=== PATIENT | male | born 1945 | race Caucasian/White ===

== ENCOUNTER 2023-10-05 10:03 | Emergency (ER) | payer MEDICARE, OTHER, SELFPAY ==
[2023-10-05 10:22] VITALS: BP 122/62
--- NOTE | 2023-10-05 13:35 | ED.GENMED ---
History of Present Illness
General
Chief Complaint: DVT/Possible Blood Clot
Time Seen by Provider: 10/05/23 12:35
Travel History
Have you had any contact with someone who has COVID-19?: No
Do you have any symptoms of coronavirus? Fever > 100 degrees, chills, cough, shortness of breath, sore throat, loss of taste or smell, muscle aches, or headache?: No
History of Present Illness
History of Present Illness:
HPI: The patient was seen at [facility] about a week ago with right lower extremity distal pain and swelling. They report having a negative ultrasound for DVT but was diagnosed with 'thrombophlebitis'. Was recommended that he takes
Tylenol. The pain has been worsening so he came in here as he also has increasing gait dysfunction. He came in by private vehicle. states that they did do an x-ray at [place] as well. There has been no injury.
EXAM:
GENERAL: The patient appears somewhat generally weak and debilitated
HEENT: Moist oral mucosa
NEUROLOGIC: Equally weak in all extremities, no coordination deficits
PSYCHIATRIC: Appropriate mental status, normal insight and judgement
EXTREMITIES: 2+ bilateral lower extremity edema distally however there seems to be more tenderness to the right distal lower extremity, no evidence for cellulitis
SKIN: No rash, no lesions
TIME OF INITIAL ENCOUNTER: 1:30 PM
NUMBER AND COMPLEXITY OF PROBLEMS ADDRESSED AT THE ENCOUNTER
� Chronic conditions affecting care: DVT, CAD, high blood pressure, hyperlipidemia
� Acute Exacerbation and/or Progression of Chronic Illness:
� Differential Diagnosis includes: Thrombophlebitis, DVT, superficial venous thrombosis
AMOUNT AND/OR COMPLEXITY OF DATA TO BE REVIEWED AND ANALYZED
� I performed an independent evaluation of and my interpretation is:
EKG:
CT:
X-rays:
Laboratory Studies:
Other: Ultrasound imaging negative for DVT
� Review of other/old records: The patient was admitted here with aspiration pneumonia 2022
� Clinical information was obtained by an independent historian: Spoke to the at bedside
� Prescriptions/Medications Considered but not given:
� Further testing considered but not performed:
RISK OF COMPLICATIONS AND/OR MORBIDITY OR MORTALITY OF PATIENT MANAGEMENT
� Social determinants of health affecting care: Lives at home
� Discussion with other providers:
� Escalation of care including admission/observation vs risk of discharge considered: Family is requesting something stronger for pain. Will try Ultram. I notified family that this does have potential side effects. Ultrasound
imaging has been ordered. Patient's states he has had extensive imaging including x-rays at [facility]. There is been no injury.
Past History
Past History
ED Past Medical History: CAD, GERD, HTN, Hypercholesterolemia and Other (Hypertension, CAD, CABG x310 years ago, arthritis, hernia repairs)
ED Past Surgical History: Cardiac
Patient has exhibited threatening behavior?: No
PSI?: No
Social History
Tobacco: Non-smoker
Alcohol: None
Drug: None
Personal:
Living: with family
Family History
Family History: Hypertension
Phy Exam
Physical Exam
Physical Exam:
See HPI
Course
Orders/Labs/Results
Orders:
Orders
10/05/23 12:04
US Periph Venous LOWER Ext RT Urgent
Comment:
Reason For Exam: increased pain, dvt dx
10/05/23 13:34
Tramadol HCl [Ultram] 50 mg PO NOW STA
Vital Signs
Initial and Last Documented VS:
Initial Vital Signs
Temp Pulse Resp BP Pulse Ox
98.4 F 75 18 122/62 95
10/05/23 10:22 10/05/23 10:22 10/05/23 10:22 10/05/23 10:22 10/05/23 10:22
Last Documented Vital Signs
Temp Pulse Resp BP Pulse Ox
98.4 F 65 18 151/66 95
10/05/23 10:22 10/05/23 16:13 10/05/23 16:13 10/05/23 16:13 10/05/23 16:13
*Critical Care Note
Total Time (30-74mins, 75-104mins- exclusive of procedures): Not Applicable
ED Attending Note
-
Portions of this chart may have been created with voice recognition software.� Occasional wrong word or��sound alike� substitutions may have occurred due to the inherent limitations of voice recognition software.
Discharge Plan
Departure
Patient Disposition: Home (Routine Discharge)
Date of Disposition: 10/05/23
Time of Disposition: 16:06
Patient with high blood pressure during this ER visit?: Yes
Discharge Problem:
Thrombophlebitis
Instructions: Superficial vein phlebitis and thrombosis, BLOOD PRESSURE
Prescriptions:
New
tramadol 50 mg tablet
50 mg PO BID PRN (Reason: Pain) Qty: 12 0RF
No Action
rosuvastatin [Crestor] 20 MG tablet
20 mg PO QPM
cholecalciferol (vitamin D3) 2,000 UNIT tablet
2,000 unit PO DAILY
tamsulosin 0.4 MG capsule
0.4 mg PO DAILY
Tradjenta 5 MG tablet
5 mg PO DAILY
coenzyme Q10 [Co Q-10] 200 MG capsule
200 mg PO QPM
bisoprolol-hydrochlorothiazide 5-6.25 mg tablet
1 tab PO DAILY
lisinopril 40 mg tablet
40 mg PO DAILY
cyanocobalamin (vitamin B-12) 1,000 MCG tablet
2,000 mcg PO DAILY
acetaminophen [Tylenol] 325 mg Tablet
650 mg PO Q6HPRN PRN (Reason: HEADACHE)
therapeutic multivitamin Tablet
1 tab PO DAILY
aspirin 81 mg Tablet,Delayed Release (Dr/Ec)
81 mg PO DAILY
fluticasone furoate-vilanterol [Breo Ellipta] 200-25 mcg/dose blister with device
1 inh INHALATION R DAILY
rabeprazole 20 mg Tablet,Delayed Release (Dr/Ec)
20 mg PO DAILY
levofloxacin 500 mg tablet
500 mg PO DAILY 7 Days Qty: 7 0RF
metronidazole 500 mg tablet
500 mg PO TID Qty: 21 0RF
Referrals:
Herminio Queen MD [Family Provider] -
Interventions
Interventions:
*Risk Screen - Suicide Last Done: 10/05/23 10:26
*General Assessment Last Done: 10/05/23 10:26
*Neglect/Abuse Screening Last Done: 10/05/23 10:26
ED- Fall Risk Assessment Last Done: 10/05/23 13:00
*ED COVID-19 Vaccine History Last Done: 10/05/23 16:14
*Nursing Disposition Last Done: 10/05/23 16:14
ED- Cardiac Assessment Last Done: 10/05/23 13:00
ED- Pulmonary Assessment Last Done: 10/05/23 13:00
ED-Peripheral Vascular Assessment Last Done: 10/05/23 14:01
ED-Skin Assessment Last Done: 10/05/23 13:29
Discharge Date and Time
Discharge Date/Time: 10/05/23 16:14
Print Language: CZECH
[2023-10-05] MEDS: ULTRAM 50 MG PO (13:40)
[2023-10-05 16:13] VITALS: BP 151/66
== END 2023-10-05 16:14 | disposition home or self-care (01) ==
LOC: EMR 10:03
PROVIDERS: EMERGENCY PHYSICIAN Emergency Medicine; FAMILY PHYSICIAN Family Medicine
DX: I80.3 Phlebitis and thrombophlebitis of lower extremities, unspecified (principal); M79.604 Pain in right leg; R26.9 Unspecified abnormalities of gait and mobility; I25.10 Atherosclerotic heart disease of native coronary artery without angina pectoris; I10 Essential (primary) hypertension; E78.00 Pure hypercholesterolemia, unspecified; K21.9 Gastro-esophageal reflux disease without esophagitis; Z87.01 Personal history of pneumonia (recurrent); Z95.1 Presence of aortocoronary bypass graft
CPT/HCPCS: 99284; 93971

== ENCOUNTER 2024-06-27 16:48 | Emergency (ER) | payer MEDICARE, OTHER, SELFPAY ==
[2024-06-27 17:11] VITALS: BP 145/70
--- NOTE | 2024-06-27 17:15 | ED.GENMED ---
ED Provider Triage
<Tavon Douglas PA-C - Last Filed: 06/27/24 17:15>
-
Patient seen by provider in Triage?: Seen in Triage
Attestation: A medical screening examination has been initiated by a qualified medical provider. Based on the assessment performed at this time, it has been determined that an emergent medical condition may exist and the patient has been informed
that further medical evaluation and possible additional diagnostic testing may be needed.
HPI: 78-year-old male presents with generalized weakness cough diarrhea for several days. He has a history of dehydration. No known sick contacts. Vital signs are stable. COVID flu testing basic labs and chest x-ray ordered
GENERAL: Alert , in no apparent distress
EYE: No visual abnormalities.
NECK: Trachea midline
ENT: No visible abnormalities.
LUNGS: No acute respiratory distress
NEUROLOGICAL: Alert and oriented
SKIN: Skin intact. No visible changes.
MUSCULOSKELETAL: Moving extremities normally
PSYCH: Normal and appropriate interaction.
This is a medical evaluation conducted in person to initiate diagnostic evaluation and provide initial therapeutics. Please see further documentation by the treating clinician.
History of Present Illness
<Tavon Douglas PA-C - Last Filed: 06/27/24 17:15>
General
Chief Complaint: Weakness
Time Seen by Provider: 06/27/24 21:08
<Watson Ndiaye DO - Last Filed: 06/27/24 23:40>
General
Source: patient, records and family
Exam Limitations: none
Nursing documentation reviewed up to this point in time: agreed with
History of Present Illness
History of Present Illness:
78-year-old male presents with fatigue, acute on chronic issue, seems to worsen this week and with a diarrheal illness, mild shortness of breath, no abdominal pain, having trouble ambulating, no slurred speech no fevers no vomiting no chest pain has
a pacemaker
Last week his diabetes meds were switched, Tradjenta was stopped started on metformin which she been on previously,
Past History
<Tavon Douglas PA-C - Last Filed: 06/27/24 17:15>
Past History
ED Past Medical History: CAD, GERD, HTN, Hypercholesterolemia and Other (Hypertension, CAD, CABG x310 years ago, arthritis, hernia repairs)
ED Past Surgical History: Cardiac
Patient has exhibited threatening behavior?: No
PSI?: No
Social History
Tobacco: Non-smoker
Alcohol: None
Drug: None
Personal:
Living: with family
Family History
Family History: Hypertension
<Watson Ndiaye DO - Last Filed: 06/27/24 23:40>
Social History
Employment: Retired
Review of Systems
<Watson Ndiaye DO - Last Filed: 06/27/24 23:40>
Review of Systems
All Other Systems: Not applicable
Constitutional: Reports fatigue; Denies fever
EENT: Reports no symptoms
Respiratory: Reports cough and trouble breathing
ABD/GI: Reports diarrhea; Denies abdominal pain or nausea
Neurological: Reports dizzy and weakness; Denies headache
Hematologic/Lymphatic: Reports no symptoms
Psychiatric: Reports no symptoms
Phy Exam
<Watson Ndiaye DO - Last Filed: 06/27/24 23:40>
Physical Exam
Physical Exam:
Physical Exam
General: 78-year-old male slightly ill-appearing
Neck: Dry lip
Heart: Regular
Lungs: No crackles no wheeze
Abdomen: Nontender
Neuro: a Globally weak moves all extremities no facial palsy speech is
Skin: no rash
Psychiatric: Cough
Extremities: Edema
Course
<Tavon Douglas PA-C - Last Filed: 06/27/24 17:15>
Orders/Labs/Results
Orders:
Orders
06/27/24 17:12
CR Chest - 2 Views Urgent
Comment:
Reason For Exam: cough
06/27/24 17:25
Complete Blood Count/With Diff Urgent
Comprehensive Metabolic Panel Urgent
Influenza A+B Rapid Molecular Urgent
GONZALES Source: Nasal Swab
Specimen Description:
06/27/24 21:17
CT Head W/o Iv Contrast Urgent
Comment:
Reason For Exam: weakness cant walk
0.9% Sodium Chloride 1000 ml [Nss] 1,000 ml IV BOLUS
06/27/24 21:18
COVID-19 Antigen Urgent
Abnormal Lab Results
06/27/24
17:25
MCHC 32.6 L g/dL
(33.0-37.0)
Abs Immat Gran (auto) 0.1 H 10^3/uL
(0-0.05)
Absolute Monos (auto) 1.0 H 10^3/uL
(0.1-0.6)
Immature Gran % 0.8 H %
(0-0.5)
Lymphocytes % 17.1 L %
(20.5-51.1)
Monocytes % 13.1 H %
(1.7-9.3)
Chloride 96 L mmol/L
(98-107)
BUN 22 H mg/dl
(9-20)
Glucose 140 H mg/dl
(70-99)
Total Bilirubin 1.7 H mg/dl
(0.2-1.3)
06/27/24 17:25
06/27/24 17:25
Vital Signs
Initial and Last Documented VS:
Initial Vital Signs
Temp Pulse Resp BP Pulse Ox
97.6 F 64 16 145/70 98
06/27/24 17:11 06/27/24 17:11 06/27/24 17:11 06/27/24 17:11 06/27/24 17:11
Last Documented Vital Signs
Temp Pulse Resp BP Pulse Ox
98.6 F 66 19 148/67 95
06/27/24 20:42 06/27/24 22:15 06/27/24 22:15 06/27/24 22:00 06/27/24 22:15
<Watson Nidaye, DO - Last Filed: 06/27/24 23:40>
Orders/Labs/Results
Orders:
Orders
06/27/24 17:12
CR Chest - 2 Views Urgent
Comment:
Reason For Exam: cough
06/27/24 17:25
Complete Blood Count/With Diff Urgent
Comprehensive Metabolic Panel Urgent
Influenza A+B Rapid Molecular Urgent
GONZALES Source: Nasal Swab
Specimen Description:
06/27/24 21:17
CT Head W/o Iv Contrast Urgent
Comment:
Reason For Exam: weakness cant walk
0.9% Sodium Chloride 1000 ml [Nss] 1,000 ml IV BOLUS
06/27/24 21:18
COVID-19 Antigen Urgent
Abnormal Lab Results
06/27/24
17:25
MCHC 32.6 L g/dL
(33.0-37.0)
Abs Immat Gran (auto) 0.1 H 10^3/uL
(0-0.05)
Absolute Monos (auto) 1.0 H 10^3/uL
(0.1-0.6)
Immature Gran % 0.8 H %
(0-0.5)
Lymphocytes % 17.1 L %
(20.5-51.1)
Monocytes % 13.1 H %
(1.7-9.3)
Chloride 96 L mmol/L
(98-107)
BUN 22 H mg/dl
(9-20)
Glucose 140 H mg/dl
(70-99)
Total Bilirubin 1.7 H mg/dl
(0.2-1.3)
06/27/24 17:25
06/27/24 17:25
Vital Signs
Initial and Last Documented VS:
Initial Vital Signs
Temp Pulse Resp BP Pulse Ox
97.6 F 64 16 145/70 98
06/27/24 17:11 06/27/24 17:11 06/27/24 17:11 06/27/24 17:11 06/27/24 17:11
Last Documented Vital Signs
Temp Pulse Resp BP Pulse Ox
98.6 F 66 19 148/67 95
06/27/24 20:42 06/27/24 22:15 06/27/24 22:15 06/27/24 22:00 06/27/24 22:15
<Watson Ndiaye, DO - Last Filed: 06/27/24 23:40>
MDM/Problems Addressed
Differential Diagnosis Includes:
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
MDM/Problems Addressed:
Weakness
Chronic conditions affecting care: Cardiomyopathy and Arrhythmia
Acute Exacerbation and/or Progression of Chronic Illness: Cardiomyopathy and Arrhythmia
<Watson Ndiaye, DO - Last Filed: 06/27/24 23:40>
*Radiology
Radiology exam reviewed: radiology read reviewed
*Pulse Oximetry
Patient hypoxic: no
*EKG
Interpreted by ED Provider?: Yes
Interpretation: abnormal
Comparison EKG: no comparison EKG present
Heart Rate: 70
Rate: normal
Rhythm: ventricular paced
[place]: normal axis
Ischemia: non-specific ST changes
*[employer] Supervisor Interpretation
Rate: normal
Interpretation: normal
Heart Rate: 78
Rhythm: ventricular paced
*Critical Care Note
Total Time (30-74mins, 75-104mins- exclusive of procedures): Not Applicable
<Watson Ndiaye DO - Last Filed: 06/27/24 23:40>
Update Note
Update Note:
Update, labs are noted suspect he is dry we will give a liter of fluid check CT of the head see how he does may require admission
10:[address] noted chest x-ray report noted viral swabs noted we will see how he is doing after fluids
ED Attending Note
<Tavon Douglas PA-C - Last Filed: 06/27/24 17:15>
-
Portions of this chart may have been created with voice recognition software.� Occasional wrong word or��sound alike� substitutions may have occurred due to the inherent limitations of voice recognition software.
Discharge Plan
Departure
Patient Disposition: Home (Routine Discharge)
Date of Disposition: 06/27/24
Time of Disposition: 23:39
Patient with high blood pressure during this ER visit?: No
Condition: Good
Discharge Problem:
Weakness, Dehydration
Instructions: Generalized Weakness (DC)
Prescriptions:
No Action
rosuvastatin [Crestor] 20 MG tablet
20 mg PO QPM
cholecalciferol (vitamin D3) 2,000 UNIT tablet
2,000 unit PO DAILY
tamsulosin 0.4 MG capsule
0.4 mg PO DAILY
Tradjenta 5 MG tablet
5 mg PO DAILY
coenzyme Q10 [Co Q-10] 200 MG capsule
200 mg PO QPM
bisoprolol-hydrochlorothiazide 5-6.25 mg tablet
1 tab PO DAILY
lisinopril 40 mg tablet
40 mg PO DAILY
cyanocobalamin (vitamin B-12) 1,000 MCG tablet
2,000 mcg PO DAILY
acetaminophen [Tylenol] 325 mg Tablet
650 mg PO Q6HPRN PRN (Reason: HEADACHE)
therapeutic multivitamin Tablet
1 tab PO DAILY
aspirin 81 mg Tablet,Delayed Release (Dr/Ec)
81 mg PO DAILY
fluticasone furoate-vilanterol [Breo Ellipta] 200-25 mcg/dose blister with device
1 inh INHALATION R DAILY
rabeprazole 20 mg Tablet,Delayed Release (Dr/Ec)
20 mg PO DAILY
levofloxacin 500 mg tablet
500 mg PO DAILY 7 Days Qty: 7 0RF
metronidazole 500 mg tablet
500 mg PO TID Qty: 21 0RF
tramadol 50 mg tablet
50 mg PO BID PRN (Reason: Pain) Qty: 12 0RF
Referrals:
Herminio Queen MD [Family Provider] - Next open appointment
Activity Restrictions/Additional Instructions:
Drink plenty of fluids call your primary care provider tomorrow
Interventions
Interventions:
*Risk Screen - Suicide Last Done: 06/27/24 17:11
*General Assessment Last Done: 06/27/24 17:11
*Neglect/Abuse Screening Last Done: 06/27/24 21:36
ED- Fall Risk Assessment Last Done: 06/27/24 21:36
*ED COVID-19 Vaccine History Last Done: 06/27/24 17:11
ED- Cardiac Assessment Last Done: 06/27/24 21:36
ED- Neurological Assessment Last Done: 06/27/24 21:36
ED- Pulmonary Assessment Last Done: 06/27/24 21:36
Discharge Date and Time
Print Language: GUAMANIAN
[2024-06-27 17:45] LABS: % Basophils 0.8 % (0-2); % Eosinophils 0.9 % (0-6); % Immature Granulocytes 0.8 % (0-0.5); % Lymphocytes 17.1 % (20.5-51.1); % Monocytes 13.1 % (1.7-9.3); % Neutrophils 67.3 % (42.2-75.2); Absolute Basophils 0.1 10^3/uL (0-0.2); Absolute Eosinophils 0.1 10^3/uL (0-0.7); Absolute Immature Granulocytes 0.1 10^3/uL (0-0.05); Absolute Lymphocytes 1.3 10^3/uL (1.2-3.4); Absolute Neutrophils 5.2 10^3/uL (1.4-6.5); Hematocrit 42.7 % (39.0-52.0); Hemoglobin 13.9 g/dL (13.0-18.0); Mean Corp Hgb Conc. 32.6 g/dL (33.0-37.0); Mean Corpuscular Hgb 29.3 pg (27.0-31.0); Mean Corpuscular Volume 90.1 fL (80.0-94.0); Mean Platelet Volume 9.2 fL (7.4-10.4); Nucleated Red Blood Cells % 0 % (-); Platelet Count 133 10^3/uL (130-400); Red Blood Cell Count 4.74 10^6/uL (4.70-6.10); Red Cell Dist. Width 13.7 % (11.5-14.5); White Blood Cell Count 7.8 10^3/uL (4.8-10.8)
[2024-06-27 17:52] LABS: ALT (SGPT) 24 U/L (0-50); AST (SGOT) 25 U/L (17-59); Albumin 4.8 g/dl (3.5-5.0); Alkaline Phosphatase 83 U/L (38-126); Blood Urea Nitrogen 22 mg/dl (9-20); Calcium 9.7 mg/dl (8.4-10.2); Carbon Dioxide 29 mmol/L (22-30); Chloride 96 mmol/L (98-107); Glucose 140 mg/dl (70-99); Potassium 4.3 mmol/L (3.5-5.1); Sodium 136 mmol/L (135-145); Total Bilirubin 1.7 mg/dl (0.2-1.3); eGFR > 60.00
[2024-06-27 20:42] VITALS: BP 138/62
[2024-06-27 21:27] VITALS: BP 152/67
[2024-06-27 21:29] VITALS: BMI 29.2
[2024-06-27] MEDS: NSS 1000 IV (21:30)
[2024-06-27 22:00] VITALS: BP 148/67
[2024-06-27 22:07] LABS: COVID-19 Antigen Negative (Negative)
[2024-06-27 23:00] VITALS: BP 142/69
== END 2024-06-28 00:35 | disposition home or self-care (01) ==
LOC: EMR 16:48
PROVIDERS: Physician Assistant; EMERGENCY PHYSICIAN Emergency Medicine; FAMILY PHYSICIAN Family Medicine
DX: R53.1 Weakness (principal); E86.0 Dehydration; Z11.52 Encounter for screening for COVID-19
CPT/HCPCS: 99285; 96360; 70450; 71046; 80053; 85025; 87502; 87811